=== PATIENT | male | born 1980 | race Caucasian/White ===

== ENCOUNTER 2017-01-14 00:39 | Emergency (ER) | payer BC ==
[~2017-01-14] VITALS: Ht 175.3 cm; Wt 68.0 kg
[~2017-01-14 00:39] MED LIST: RANI150 PO
[2017-01-14 00:41] VITALS: BP 126/84; PULSE 75; RESP 16; TEMP 97.9; O2SAT 99
--- NOTE | 2017-01-14 02:15 | RADRPT ---
EXAM DATE/TIME: 01/14/2017 02:07 [place] COMPARISON: No previous studies available for comparison. INDICATIONS : Right lower rib pain for several days. MEDICAL HISTORY : None. SURGICAL HISTORY : None. ENCOUNTER: Initial ACUITY: 3 days PAIN SCORE: 8/10 LOCATION: Right lower chest FINDINGS: PA and lateral views of the chest demonstrate the lungs to be symmetrically aerated without evidence of mass, infiltrate or effusion. The cardiomediastinal contours are unremarkable. Osseous structure s are intact. CONCLUSION: No acute disease. Mariano Garcia MD on January 14, 2017 at 2:13 Board Certified Radiologist. This report was verified electronically.
[2017-01-14] MEDS ORDERED: DICL75TA PO (02:19)
[2017-01-14] MEDS ORDERED: CYCL1TAB29 PO (02:19)
--- NOTE | 2017-01-14 02:23 | PD ---
HPI Chief Complaint: Musculoskeletal Complaint Time Seen by Provider: 02:19 Travel History International Travel<30 days: No Contact w/Intl Traveler<30days: No Traveled to known affect area: No History of Present Illness HPI 36-year-old white male presents to emergency Department with complaints of right sided chest wall pain. He states that the pain is been on and off now for nearly 2 weeks. He states it is worse when he lays down at night. There is also certain positions and movements that make the pain worse. Taking a deep breath also makes it worse. He woke up this evening feeling short of breath with moderate to severe pain. The pain is much improved before coming in. He states that he has not been sick recently. He does not smoke. No history of trauma. He states that he exercises on a daily basis and ran the [place] today. He denies any fever or chills. No nausea vomiting. No abdominal pain or diarrhea. No calf swelling or leg pain. No sedentary activity. No connective tissue disorders. PFSH Past Medical History Medical History: Denies Significant Hx Diminished Hearing: No Tetanus Vaccination: < 5 Years Influenza Vaccination: No Past Surgical History Abdominal Surgery: Yes (HERNIA REPAIR A BABY) Other Surgery: Yes (HERNIA REPAIR) Social History Alcohol Use: Yes ( OCC) Tobacco Use: No Substance Use: No Allergies-Medications (Allergen,Severity, Reaction): Coded Allergies: No Known Allergies (Verified , 01/14/17) Reported Meds & Prescriptions Reported Meds & Active Scripts Active No Active Prescriptions or Reported Medications Review of Systems Except as stated in HPI: all other systems reviewed are Neg Physical Exam Narrative GENERAL: Well-developed, well-nourished in no acute distress. Nontoxic appearing. HEAD: Normocephalic, atraumatic. EYES: Pupils equal round and reactive. Extraocular motions intact. No scleral icterus. No injection or drainage. ENT: TMs clear without erythema. The external auditory canals clear. Nose: clear . Posterior pharynx is pink and moist. No tonsillar edema or exudate. Uvula midline. Airway patent. NECK: Trachea midline.Supple, nontender, moves head freely. No central bony tenderness or spasm. CHEST: Patient has reproducible right anterior chest wall pain just underneath the right breast. Without deformity or crepitance. No retractions or use of accessory muscles. CARDIOVASCULAR: Regular rate and rhythm without murmurs, gallops, or rubs. RESPIRATORY: Clear to auscultation. Breath sounds equal bilaterally. No wheezes , rales, or rhonchi. GASTROINTESTINAL: Abdomen soft, non-tender, nondistended. No hepato-splenomegaly , or palpable masses. No guarding. EXTREMITIES: No clubbing, cyanosis, or edema. No joint tenderness, effusion, or edema noted. BACK: Nontender without deformity or crepitance. No flank tenderness. Data Data Last Documented VS Vital Signs Date Time Temp Pulse Resp B/P Pulse Ox O2 Delivery O2 Flow Rate FiO2 01/14/17 00:47 16 01/14/17 00:41 97.9 75 126/84 99 Orders Chest, Pa & Lat (01/14/17 ) Naproxen (Naprosyn) (01/14/17 02:30) Cyclobenzaprine (Flexeril) (01/14/17 02:30) [facility] Medical Decision Making Medical Screen Exam Complete: Yes Emergency Medical Condition: Yes Medical Record Reviewed: Yes Interpretation(s) Chest x-ray: Negative for acute infiltrate. No pneumothorax. No bony deformity Differential Diagnosis Differential diagnoses: Pneumothorax, PE, chest wall pain Narrative Course Patient's exam is consistent with chest wall pain. X-ray is negative. Patient is given Naprosyn 500 and Flexeril 10 mg by mouth. Diagnosis Primary Impression: Right-sided chest wall pain Patient Instructions: General Instructions Additional Instructions: Rest. Heating pad. Medications as directed. Activity as tolerated. Follow-up with a medical doctor in one week. Return to the ER for any medical problems or worsening. Med/Other Pt SpecificInfo: Prescription(s) given Scripts Cyclobenzaprine (Flexeril)10 Mg Tab10 Mg PO TID #30 TAB Prov:Jeannine Schaefer MD 01/14/[address] 75 Mg Tabdr75 Mg PO BID #20 TAB Prov:Jeannine Schaefer MD 01/14/17 Disposition: 01 DISCHARGE HOME Condition: Stable Mariano Rivera Jan 14, 2017 02:23
[2017-01-14] MEDS ORDERED: NAPROXEN 500 MG TAB PO ONE (02:30)
[2017-01-14] MEDS ORDERED: CYCLOBENZAPRINE HCL 10 MG TAB PO ONE (02:30)
== END 2017-01-14 02:27 | disposition home or self-care (01) ==
LOC: NEPB 00:39
DX: R07.89 Other chest pain (principal)
CPT/HCPCS: 71020; 99283